=== PATIENT | female | born 1970 | race Caucasian/White ===

== ENCOUNTER 2019-11-20 11:22 | Observation (INO) | payer OTHER ==
--- NOTE | 2019-11-20 12:03 | ED ---
General Adult HPI - General Chief complaint: Chest Pain Stated complaint: chest pain/left arm pain Time Seen by Provider: 11/20/19 11:36 Source: patient, RN notes reviewed, old records reviewed Mode of arrival: ambulatory Limitations: no limitations - History of Present Illness Initial comments: 48-year-old female presenting for evaluation of chest tightness. Patient has had ongoing symptoms for approximately one year of intermittent chest tightness. She was at work this morning and noted to have some anterior left-sided chest pain and tightness. 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 Nitroglycerin did improve her symptoms. She had taken 325 mg of aspirin prior to arrival. She states pain is been present since she woke this morning at approximately 4 AM, she is presenting at 11:30 AM. Pain nearly completely resolved at the time my evaluation. She reports some radiating symptoms to her left arm. No vomiting. No history of CAD - Related Data Home Medications Medication Instructions Recorded Confirmed Aspirin EC [Ecotrin] 325 mg PO DAILY PRN 11/20/19 11/20/19 Allergies Allergy/AdvReac Type Severity Reaction Status Date / Time ibuprofen [From Motrin] AdvReac GI UPSET Verified 11/20/19 12:54 Review of Systems ROS Statement: Those systems with pertinent positive or pertinent negative responses have been documented in the HPI. ROS Other: All systems not noted in ROS Statement are negative. Past Medical History Past Medical History: No Reported History History of Any Multi-Drug Resistant Organisms: None Reported Past Surgical History: Hysterectomy Additional Past Surgical History / Comment(s): tummy tuck, breast lift, carpal tunnel surgery, mesh removal surgery, Past Psychological History: No Psychological Hx Reported Smoking Status: Never smoker Past Alcohol Use History: Rare Past Drug Use History: None Reported General Exam Limitations: no limitations General appearance: alert, in no apparent distress Head exam: Present: atraumatic, normocephalic Eye exam: Present: normal appearance, PERRL ENT exam: Present: normal exam Neck exam: Present: normal inspection. Absent: tenderness Respiratory exam: Present: normal lung sounds bilaterally. Absent: respiratory distress, wheezes Cardiovascular Exam: Present: regular rate, normal rhythm GI/Abdominal exam: Present: soft. Absent: distended, tenderness, guarding Extremities exam: Present: normal inspection, normal capillary refill. Absent: pedal edema, calf tenderness Neurological exam: Present: alert, oriented X3, CN II-XII intact. Absent: motor sensory deficit Psychiatric exam: Present: normal affect, normal mood Skin exam: Present: warm, dry, intact. Absent: cyanosis, diaphoretic Course Vital Signs 11/20/19 11/20/19 11:24 12:00 Temperature 98 F Pulse Rate 70 72 Respiratory 16 16 Rate Blood Pressure 174/108 152/85 O2 Sat by Pulse 99 Oximetry EKG Findings - EKG Comments: EKG Findings:: EKG, normal sinus rhythm, rate of 60, KS interval 178, QRS duration 84, QTC 414, no ST segment elevation. Similar compared to EKG performed earlier today at the patient's primary care office. Medical Decision Making - Medical Decision Making 48-year-old female presenting with intermittent chest tightness for approximately one year. Symptoms did worsen today and she was given aspirin nitroglycerin prior to arrival. Workup in the emergency department reveals normal sinus EKG with no ST segment changes. Chest x-ray shows concern for early developing right middle lobe infiltrate. This does not correspond to the patient's symptoms, she has no cough, no fever, no leukocytosis and her pain and tightness is on the left side of her chest. Will monitor for signs of pneumonia, I will hold antibiotics at this time. Laboratory testing reveals normal CBC, normal CMP, negative troponin. Patient will be kept in observation for serial cardiac enzymes, telemetry, cardiology consultation. Case is discussed with Dr. Tam who will accept admission. - Lab Data Result diagrams: 11/20/19 11:48 11/20/19 11:48 Lab Results 11/20/19 11/20/19 11/20/19 Range/Units 11:48 11:48 11:48 WBC 8.1 (3.8-10.6) k/uL RBC 4.74 (3.80-5.40) m/uL Hgb 14.8 (11.4-16.0) gm/dL Hct 41.8 (34.0-46.0) % MCV 88.2 (80.0-100.0) fL MCH 31.2 (25.0-35.0) pg MCHC 35.4 (31.0-37.0) g/dL RDW 12.8 (11.5-15.5) % Plt Count 309 (150-450) k/uL Neutrophils % 59 % Lymphocytes % 34 % Monocytes % 3 % Eosinophils % 1 % Basophils % 1 % Neutrophils # 4.8 (1.3-7.7) k/uL Lymphocytes # 2.8 (1.0-4.8) k/uL Monocytes # 0.3 (0-1.0) k/uL Eosinophils # 0.1 (0-0.7) k/uL Basophils # 0.1 (0-0.2) k/uL PT 10.0 (9.0-12.0) sec INR 1.0 (<1.2) APTT 24.9 (22.0-30.0) sec Sodium 137 (137-145) mmol/L Potassium 4.0 (3.5-5.1) mmol/L Chloride 105 (98-107) mmol/L Carbon Dioxide 21 L (22-30) mmol/L Anion Gap 11 mmol/L BUN 18 H (7-17) mg/dL Creatinine 0.76 (0.52-1.04) mg/dL Est GFR (CKD-EPI)AfAm >90 (>60 ml/min/1.73 sqM) Est GFR (CKD-EPI)NonAf >90 (>60 ml/min/1.73 sqM) Glucose 96 (74-99) mg/dL Calcium 9.5 (8.4-10.2) mg/dL Magnesium 1.8 (1.6-2.3) mg/dL Total Bilirubin 0.8 (0.2-1.3) mg/dL AST 18 (14-36) U/L ALT 12 (4-34) U/L Alkaline Phosphatase 54 (38-126) U/L Troponin I (0.000-0.034) ng/mL Total Protein 7.5 (6.3-8.2) g/dL Albumin 4.6 (3.5-5.0) g/dL Lipase 130 (23-300) U/L 11/20/19 Range/Units 11:48 WBC (3.8-10.6) k/uL RBC (3.80-5.40) m/uL Hgb (11.4-16.0) gm/dL Hct (34.0-46.0) % MCV (80.0-100.0) fL MCH (25.0-35.0) pg MCHC (31.0-37.0) g/dL RDW (11.5-15.5) % Plt Count (150-450) k/uL Neutrophils % % Lymphocytes % % Monocytes % % Eosinophils % % Basophils % % Neutrophils # (1.3-7.7) k/uL Lymphocytes # (1.0-4.8) k/uL Monocytes # (0-1.0) k/uL Eosinophils # (0-0.7) k/uL Basophils # (0-0.2) k/uL PT (9.0-12.0) sec INR (<1.2) APTT (22.0-30.0) sec Sodium (137-145) mmol/L Potassium (3.5-5.1) mmol/L Chloride (98-107) mmol/L Carbon Dioxide (22-30) mmol/L Anion Gap mmol/L BUN (7-17) mg/dL Creatinine (0.52-1.04) mg/dL Est GFR (CKD-EPI)AfAm (>60 ml/min/1.73 sqM) Est GFR (CKD-EPI)NonAf (>60 ml/min/1.73 sqM) Glucose (74-99) mg/dL Calcium (8.4-10.2) mg/dL Magnesium (1.6-2.3) mg/dL Total Bilirubin (0.2-1.3) mg/dL AST (14-36) U/L ALT (4-34) U/L Alkaline Phosphatase (38-126) U/L Troponin I <0.012 (0.000-0.034) ng/mL Total Protein (6.3-8.2) g/dL Albumin (3.5-5.0) g/dL Lipase (23-300) U/L Disposition Clinical Impression: Chest pain Disposition: ADMITTED IP TO THIS [facility] Condition: Stable Is patient prescribed a controlled substance at d/c from ED?: No Referrals: Emilia Doyle DO [Primary Care Provider] - 1-2 days Decision to Admit Reason: Admit from EC Decision Date: 11/20/19 Decision Time: 13:00
--- NOTE | 2019-11-20 12:08 | XR ---
EXAMINATION TYPE: XR chest 2V DATE OF EXAM: 11/20/2019 HISTORY: Chest Pain. REFERENCE: NONE. FINDINGS: There is minimal increased opacity in the right middle lobe. I could not exclude an early d eveloping infiltrate. The left lung is clear. Pleural spaces are clear. The heart is not enlarged. IMPRESSION: I CANNOT EXCLUDE A EARLY DEVELOPING RIGHT MIDDLE LOBE INFILTRATE.
[2019-11-20 12:09] LABS: Basophils # (A) 0.1 k/uL (0-0.2); Basophils % (A) 1 %; Eosinophils # (A) 0.1 k/uL (0-0.7); Eosinophils % (A) 1 %; HCT 41.8 % (34.0-46.0); HGB 14.8 gm/dL (11.4-16.0); Lymphocytes # (A) 2.8 k/uL (1.0-4.8); Lymphocytes % (A) 34 %; MCH 31.2 pg (25.0-35.0); MCHC 35.4 g/dL (31.0-37.0); MCV 88.2 fL (80.0-100.0); Mean Platelet Volume 7.3; Monocytes # (A) 0.3 k/uL (0-1.0); Monocytes % (A) 3 %; Neutrophils # (A) 4.8 k/uL (1.3-7.7); Neutrophils % (A) 59 %; Platelet Count 309 k/uL (150-450); RBC 4.74 m/uL (3.80-5.40); RDW 12.8 % (11.5-15.5); WBC 8.1 k/uL (3.8-10.6)
[2019-11-20 12:10] LABS: ALT 12 U/L (4-34); AST 18 U/L (14-36); African American GFR (CKD) >90 (>60 ml/min/1.73 sqM); Albumin 4.6 g/dL (3.5-5.0); Alkaline Phosphatase 54 U/L (38-126); Anion Gap 11 mmol/L; Blood Urea Nitrogen 18 mg/dL (7-17); Calcium 9.5 mg/dL (8.4-10.2); Carbon Dioxide 21 mmol/L (22-30); Chloride 105 mmol/L (98-107); Glucose 96 mg/dL (74-99); Magnesium 1.8 mg/dL (1.6-2.3); Non-African American GFR(CKD) >90 (>60 ml/min/1.73 sqM); Sodium 137 mmol/L (137-145); Total Bilirubin 0.8 mg/dL (0.2-1.3); Total Protein 7.5 g/dL (6.3-8.2)
[2019-11-20 12:39] LABS: Partial Thromboplastin Time 24.9 sec (22.0-30.0)
[2019-11-20] MEDS ORDERED: MORPHINE SULFATE 4 MG/ML SYRINGE IV PRN (12:53)
[2019-11-20] MEDS ORDERED: ACETAMINOPHEN TAB 325 MG TAB PO PRN (12:53)
[2019-11-20] MEDS ORDERED: NALOXONE 0.4 MG/ML 1 ML VIAL IV PRN (12:53)
[2019-11-20] MEDS ORDERED: NITROGLYCERIN SL TABS 0.4 MG TAB SUBLINGUAL PRN (12:56)
[2019-11-20] MEDS: SODIUM CHLORIDE 0.9% 1,000 ML IV SCH (15:02)
[2019-11-20] MEDS ORDERED: ALPRAZolam 0.25 MG TAB PO PRN (15:23)
[2019-11-20] MEDS ORDERED: TEMAZEPAM 15 MG CAP PO PRN (15:23)
[2019-11-20 16:51] VITALS: RESP 18
[2019-11-20] MEDS: PANTOPRAZOLE 40 MG TABLET PO SCH (17:58)
[2019-11-20 18:10] LABS: Appearance,Urine Clear (Clear); Bacteria,Urine Rare /hpf; Bilirubin,Urine Negative (Negative); Blood,Urine Negative (Negative); Color,Urine Yellow; Glucose,Urine (UA) Negative (Negative); Ketones,Urine Negative (Negative); Leukocyte Esterase,Urine Small (Negative); Mucus,Urine Rare /hpf; Nitrite,Urine Negative (Negative); Protein,Urine Negative (Negative); Specific Gravity,Urine 1.021 (1.001-1.035); Squamous Epithelial Cell,Urine 1 /hpf (0-4); Urobilinogen,Urine <2.0 mg/dL (<2.0); WBC,Urine 2 /hpf (0-5)
--- NOTE | 2019-11-20 18:20 | HP ---
HISTORY AND PHYSICAL DATE OF SERVICE: 11/20/2019 CHIEF COMPLAINT: Chest pain. HISTORY OF PRESENT ILLNESS: This 48-year-old woman with a past medical history of hysterectomy. Otherwise, no other significant medical issues, being followed by Dr. Emilia Doyle in the outpatient setting was complaining of chest pain. The patient was having on and off chest pain but today the patient had significant chest discomfort, pressure type of feeling, mild to moderate intensity felt in the anterior part of chest, subsequently patient had achy feeling along the medial part of the left arm and the patient came to [facility] and was admitted for further evaluation and treatment. Nitroglycerin did improve the symptoms. The patient also complains of some increased social stresses at this time. There is no history of fever, rigors. No history of headache, loss of consciousness, seizures. Initial troponins are negative and EKG showed no abnormality. Cardiology evaluation in progress. There is no history of fever, rigors. No history of headache, loss of consciousness, seizures. PAST MEDICAL HISTORY: Hysterectomy. MEDICATIONS: Prior to admission, home medications are: Aspirin 320 mg daily p.r.n. ALLERGIES: MOTRIN. FAMILY HISTORY: No history of heart disease or strokes in the family. 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 No history of smoking. No history of alcohol intake. REVIEW OF SYSTEMS: ENT: No diminished vision. No diminished hearing. CARDIOVASCULAR system: As mentioned earlier. RESPIRATORY: As mentioned earlier. GI no nausea or vomiting. : No dysuria. CENTRAL NERVOUS SYSTEM: No numbness or weakness. ALLERGY/IMMUNOLOGY: No asthma or hayfever. MUSCULOSKELETAL: As mentioned earlier. HEMATOLOGY/ONCOLOGY: No history of anemia. ENDOCRINE: No history of diabetes or hypothyroidism. CONSTITUTIONAL: As mentioned earlier. DERMATOLOGY: Negative. RHEUMATOLOGY: Negative. PSYCHIATRY: As mentioned earlier. PHYSICAL EXAMINATION: The patient is alert and oriented times two. Pulse 70. Blood pressure 174/108, respirations 16, temperature 98 degrees, pulse ox 99% on room air. HEENT is conjunctivae normal. Oral mucosa moist. NECK is no jugular venous distention. No carotid bruit. No lymph node enlargement. CARDIOVASCULAR SYSTEM: S1, S2 muffled. No S3, no S4. RESPIRATORY: Breath sounds diminished in the bases. No rhonchi. No crackles. ABDOMEN: Soft, obese, nontender. No mass palpable. LEGS: No edema. No swelling. NERVOUS SYSTEM: Higher functions as mentioned earlier. Moves all 4 limbs. No focal motor or sensory deficits. LYMPHATICS: No lymph nodes palpable in the neck, axillae or groin. SKIN: No ulcer, no rashes and no bleeding. JOINTS: No active deforming arthropathy. LABS: CBC within normal limits. Sodium 137, potassium 4, BUN is 18. ASSESSMENT: 1. Chest pain, possible unstable angina. 2. Hypertension. 3. Hysterectomy. 4. History of carpal tunnel syndrome. RECOMMENDATIONS AND DISCUSSION: This 48-year-old woman who presented with multiple medical issues, we will monitor the patient closely. Continue the current medications, symptomatic treatment, management and will follow with unstable angina protocol. Symptomatic treatment. Will initiate low-dose Lopressor. Antiplatelet agents. Otherwise, acute coronary syndrome. Cardiology consultation. Patient will require further evaluation including stress test. We will check lipid panel. Prognosis guarded. Further recommendations to follow. A copy of dictation being forwarded to Dr. Emilia Doyle who is the primary physician. MMPERNELLL / VICTORIAN: [id number] /
[2019-11-20] MEDS: METOPROLOL TARTRATE 12.5 MG TAB PO SCH (21:15)
[2019-11-21] MEDS: PANTOPRAZOLE 40 MG TABLET PO SCH (06:32)
[2019-11-21 06:56] LABS: Basophils # (A) 0.1 k/uL (0-0.2); Basophils % (A) 1 %; Eosinophils # (A) 0.1 k/uL (0-0.7); Eosinophils % (A) 1 %; HCT 45.6 % (34.0-46.0); HGB 15.4 gm/dL (11.4-16.0); Lymphocytes # (A) 2.8 k/uL (1.0-4.8); Lymphocytes % (A) 35 %; MCH 30.3 pg (25.0-35.0); MCHC 33.7 g/dL (31.0-37.0); Mean Platelet Volume 6.8; Monocytes # (A) 0.3 k/uL (0-1.0); Monocytes % (A) 4 %; Neutrophils # (A) 4.7 k/uL (1.3-7.7); Neutrophils % (A) 59 %; Platelet Count 335 k/uL (150-450); RBC 5.07 m/uL (3.80-5.40); RDW 12.8 % (11.5-15.5)
[2019-11-21 07:05] LABS: African American GFR (CKD) >90 (>60 ml/min/1.73 sqM); Anion Gap 7 mmol/L; Blood Urea Nitrogen 15 mg/dL (7-17); Calcium 9.2 mg/dL (8.4-10.2); Carbon Dioxide 27 mmol/L (22-30); Chloride 103 mmol/L (98-107); Cholesterol 211 mg/dL (<200); Glucose 101 mg/dL (74-99); HDL Cholesterol 78 mg/dL (40-60); LDL Cholesterol,Calculated 118 mg/dL (0-99); Non-African American GFR(CKD) 84 (>60 ml/min/1.73 sqM); Potassium 4.3 mmol/L (3.5-5.1); Sodium 137 mmol/L (137-145); Triglycerides 77 mg/dL (<150)
--- NOTE | 2019-11-21 07:57 | P.CRDCN ---
History of Present Illness Consult date: 11/21/19 Consult reason: chest pain History of present illness: This is a 48-year-old female of Dr. 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 Patient has no significant past medical history. She states that over the past one year she has noted that her blood pressure which was always low has been coming up higher. She states that she has had chest tightness in the midsternal area across her chest on and off for at least 6 months possibly up to one year. She occasionally gets some involvement of her left arm ache. She does not associate the pain with exertion. Patient states that yesterday she was really not feeling well and had ache in the left and middle chest and was on and off. They checked her blood pressure which was high at 160/100 and she was given nitroglycerin at the doctor's office where she works. She did have relief of her chest pain and she was instructed by Dr. Doyle to come into the hospital for further evaluation. At the time of this evaluation, patient is chest pain-free. Her initial blood pressure was 174/104. EKG was in normal sinus rhythm with no acute ST-T wave changes. Troponins negative on 3 draws. Lipase 130, CBC electrolytes and liver function tests are within normal limits. Triglycerides 77, cholesterol 211, LDL 118, HDL 78. Patient has been started on Lopressor and echocardiogram was ordered by her admitting physician. Review Of Systems: Constitutional: No fever, no chills, no night sweats. No weight change. No weakness, fatigue or lethargy. No daytime sleepiness. EENT: No headache. No blurred vision or double vision, no loss of vision. No loss of Hearing, no ringing in the ears, no dizziness. No nasal drainage or congestion. No epistaxis. No sore throat. Lungs: No shortness of breath, cough, no sputum production. No wheezing. Cardiovascular: No chest pain, no lower extremity edema. No palpitations. No paroxysmal nocturnal dyspnea. No orthopnea. No lightheadedness or dizziness. No syncopal episodes. Abdominal: No abdominal pain. No nausea, vomiting. No diarrhea. No constipation. No bloody or tarry stools.. No loss of appetite. Genitourinary: No dysuria, increased frequency, urgency. No urinary retention. Musculoskeletal: No myalgias. No muscle weakness, no gait dysfunction, no frequent falls. No back pain. No neck pain. Integumentary: No wounds, no lesions. No rash or pruritus. No unusual b ruising. No change in hair or nails. Neurologic: No aphasia. No facial droop. No change in mentation. No head injury. No headache. No paralysis. No paresthesia. Psychiatric: No depression. No anxiety. No mood swings. Endocrine: No abnormal blood sugars. No weight change. No excessive sweating o r thirst. No cold intolerance. No weight change. Gen: This is a 48-year-old female. Patient is resting in bed and appears to be comfortable and in no acute distress. VS: Afebrile, heart rate 71, blood pressure 153/86, pulse ox 98% on room air. HEENT: Head is atraumatic, normocephalic. Pupils equal, round. Sclerae is anicteric. NECK: Supple. No JVD. No lymphadenopathy. No thyromegaly. LUNGS: Clear to auscultation. No wheezes or rhonchi. No intercostal retractions. HEART: Regular rate and rhythm. No murmur. ABDOMEN: Soft. Bowel sounds are present. No masses. No tenderness. EXTREMITIES: No pedal edema. No calf tenderness. NEUROLOGICAL: Patient is awake, alert and oriented x3. Cranial nerves 2 through 12 are grossly intact. Assessment: Chest pain, acute coronary syndrome ruled out Hypertension uncontrolled Plan: Patient has been started on Lopressor 12.5 mg twice daily Lopressor and aspirin 81 mg daily at home Obtain 2-D echocardiogram and Doppler study to assess cardiac structure and function and this may be done as an outpatient. Patient is cleared from cardiology for discharge home with plan for follow-up in the office for outpatient stress testing. Thank you kindly for this consultation Nurse practitioner note has been reviewed, I agree with documented findings and plan of care. Patient was seen and examined. Past Medical History Past Medical History: No Reported History History of Any Multi-Drug Resistant Organisms: None Reported Past Surgical History: Hysterectomy Additional Past Surgical History / Comment(s): tummy tuck, breast lift, carpal tunnel surgery, mesh removal surgery, Past Anesthesia/Blood Transfusion Reactions: No Reported Reaction Past Psychological History: No Psychological Hx Reported Smoking Status: Never smoker Past Alcohol Use History: Rare Past Drug Use History: None Reported - Past Family History Father Family Medical History: Hypertension Additional Family Medical History / Comment(s): Maternal grandparent had cancer, cervical and lung Medications and Allergies Home Medications Medication Instructions Recorded Confirmed Type Acetaminophen Tab [Tylenol Tab] 500 mg PO Q6H PRN 11/20/19 11/20/19 History Aspirin EC [Ecotrin] 325 mg PO DAILY PRN 11/20/19 11/20/19 History Allergies Allergy/AdvReac Type Severity Reaction Status Date / Time ibuprofen [From Motrin] AdvReac GI UPSET Verified 11/20/19 12:54 Physical Exam Vitals: Vital Signs Temp Pulse Pulse Resp BP BP Pulse Ox 11/21/19 04:00 98 F 71 18 153/86 98 11/21/19 00:00 97.7 F 59 L 18 145/87 97 11/20/19 20:00 97.7 F 63 18 139/84 98 11/20/19 16:00 97.8 F 58 L 18 145/80 99 11/20/19 12:00 72 16 152/85 11/20/19 11:24 98 F 70 16 174/108 99 Intake and Output 11/20/19 11/21/19 11/21/19 22:59 06:59 14:59 Other: Voiding Method Toilet Toilet # Voids 1 1 Weight 101.1 kg Results 11/21/19 06:08 11/21/19 06:08 Cardiac Enzymes 11/20/19 11/20/19 11/20/19 Range/Units 11:48 11:48 17:58 AST 18 (14-36) U/L Troponin I <0.012 <0.012 (0.000-0.034) ng/mL 11/21/19 Range/Units 00:05 AST (14-36) U/L Troponin I <0.012 (0.000-0.034) ng/mL Coagulation 11/20/19 Range/Units 11:48 PT 10.0 (9.0-12.0) sec APTT 24.9 (22.0-30.0) sec Lipids 11/21/19 Range/Units 06:08 Triglycerides 77 (<150) mg/dL Cholesterol 211 H (<200) mg/dL HDL Cholesterol 78 H (40-60) mg/dL CBC 11/20/19 11/21/19 Range/Units 11:48 06:08 WBC 8.1 8.0 (3.8-10.6) k/uL RBC 4.74 5.07 (3.80-5.40) m/uL Hgb 14.8 15.4 (11.4-16.0) gm/dL Hct 41.8 45.6 (34.0-46.0) % Plt Count 309 335 (150-450) k/uL Comprehensive Metabolic Panel 11/20/19 11/21/19 Range/Units 11:48 06:08 Sodium 137 137 (137-145) mmol/L Potassium 4.0 4.3 (3.5-5.1) mmol/L Chloride 105 103 (98-107) mmol/L Carbon Dioxide 21 L 27 (22-30) mmol/L BUN 18 H 15 (7-17) mg/dL Creatinine 0.76 0.82 (0.52-1.04) mg/dL Glucose 96 101 H (74-99) mg/dL Calcium 9.5 9.2 (8.4-10.2) mg/dL AST 18 (14-36) U/L ALT 12 (4-34) U/L Alkaline Phosphatase 54 (38-126) U/L Total Protein 7.5 (6.3-8.2) g/dL Albumin 4.6 (3.5-5.0) g/dL Current Medications Generic Name Dose Route Start Last Admin Trade Name Freq PRN Reason Stop Dose Admin Acetaminophen 650 mg 11/20/19 12:53 Tylenol Tab PO Q6HR PRN Mild Pain or Fever > 100.5 Alprazolam 0.25 mg 11/20/19 15:23 Xanax PO TID PRN Anxiety Aspirin 325 mg 11/21/19 09:00 Aspirin PO DAILY KAYCEE Sodium Chloride 1,000 mls @ 20 mls/hr 11/20/19 13:00 11/20/19 15:02 Saline 0.9% IV Not Given .Q24H KAYCEE Metoprolol Tartrate 12.5 mg 11/20/19 21:00 11/20/19 21:15 Lopressor PO 12.5 mg BID KAYCEE Administration Morphine Sulfate 4 mg 11/20/19 12:53 Morphine Sulfate (Inj) IV Q4HR PRN Severe Pain Naloxone HCl 0.2 mg 11/20/19 12:53 Narcan IV Q2M PRN Opioid Reversal Nitroglycerin 0.4 mg 11/20/19 12:56 Nitrostat SUBLINGUAL Q5M PRN Chest Pain Pantoprazole Sodium 40 mg 11/20/19 15:30 11/21/19 06:32 Protonix PO Not Given AC-BRKFST KAYCEE Temazepam 15 mg 11/20/19 15:23 Restoril PO HS PRN Insomnia Intake and Output 11/20/19 11/21/19 11/21/19 22:59 06:59 14:59 Other: Voiding Method Toilet Toilet # Voids 1 1 Weight 101.1 kg 11/21/19 06:08 11/21/19 06:08
[2019-11-21] MEDS: METOPROLOL TARTRATE 12.5 MG TAB PO SCH (08:55)
[2019-11-21] MEDS ORDERED: ASPIRIN 325 MG TAB PO SCH (09:00)
[2019-11-21 11:09] VITALS: BP 162/85; PULSE 67; TEMP 97.9
[2019-11-21] MEDS ORDERED: METOPROLOL TARTRATE 12.5 MG TAB PO ONE (11:15)
[2019-11-21] MEDS: SODIUM CHLORIDE 0.9% 1,000 ML IV SCH (13:07)
[2019-11-21] MEDS ORDERED: METOPROLOL TARTRATE 25 MG TAB PO SCH (21:00)
--- NOTE | 2019-11-22 07:27 | DS ---
DISCHARGE SUMMARY DATE OF SERVICE: 11/21/2019 FINAL DIAGNOSES: 1. Chest pain, myocardial infarction ruled out. 2. Hypertension. 3. Hyperlipidemia. 4. History of hysterectomy. 5. History of carpal tunnel syndrome. DISCHARGE DISPOSITION: The patient will be discharged in stable condition with guarded prognosis. Cleared by Cardiology. HISTORY OF PRESENT ILLNESS: This 48-year-old woman with a past medical history of multiple medical problems admitted with chest pain, myocardial infarction ruled out. Cardiology saw the patient and recommended the patient to be discharged and have outpatient stress test. The patient is asymptomatic at this time. The patient will be discharged in stable condition with guarded prognosis. Otherwise, the cholesterol is 211, LDL is 118, HDL is 78, and triglycerides 77. Recommend outpatient followup. On exam, vitals are stable. CARDIOVASCULAR: S1, S2 muffled. ABDOMEN: Soft. NERVOUS SYSTEM: No focal deficits. DISCHARGE ADVICE: 1. Diet is cardiac. 2. Activity limited until followup. 3. Follow up with Dr. Emilia Doyle in 1 to 2 days. Medications are: 1. Ecotrin 325 mg p.o. daily p.r.n. 2. Lopressor 25 mg p.o. b.i.d. As mentioned earlier, repeat labs, cholesterol with Dr. Doyle and continue to follow. MMODL / IJN: [id number] /
== END 2019-11-21 15:48 | disposition home or self-care (01) ==
LOC: EC 11:22 → 3SCARD 12:56
PROVIDERS: ADMIT Hospitalist; ATTEND Hospitalist
DX: R07.9 Chest pain, unspecified (principal); I10 Essential (primary) hypertension; E78.5 Hyperlipidemia, unspecified; Z90.710 Acquired absence of both cervix and uterus; G56.00 Carpal tunnel syndrome, unspecified upper limb; Z79.82 Long term (current) use of aspirin; Z79.899 Other long term (current) drug therapy; Z88.8 Allergy status to other drugs, medicaments and biological substances
CPT/HCPCS: 93005 ×2; 99285; 36415; 83880; 80061; 80053; 80048; 83690; 83735; 84484 ×2; 85025 ×2; 85610; 85730; 81001; 71046; G0378 ×2